=== PATIENT | female | born 1980 | race Hispanic/Latino ===

== ENCOUNTER 2019-08-21 10:55 | Outpatient (NON) | payer OTHER, SELFPAY ==
[2019-08-22 14:46] LABS: SARS-CoV-2 RNA PCR Negative
== END 2019-08-21 10:56 ==
PROVIDERS: PCP Family Medicine; Visit Provider Family Medicine
DX: R05 Cough (principal); Z20.828 Contact with and (suspected) exposure to other viral communicable diseases
CPT/HCPCS: 87635; C9803; U0003

== ENCOUNTER 2020-11-26 11:02 | Outpatient (CLI) | payer OTHER, SELFPAY ==
[2020-11-26 12:00] LABS: Basophils Percent Auto 0.2 % (0.2-1.2); Eosinophils Absolute Auto 0.1 K/mm3 (0-0.3); Eosinophils Percent Auto 1.3 % (0-4.4); Hematocrit 42.3 % (37.0-47.0); Immature Granulocyte Absolute 0.01 K/mm3 (0.00-0.031); Immature Granulocyte Percent A 0.2 % (0-0.5); Lymphocytes Absolute Auto 1.54 K/mm3 (0.9-3.2); Lymphocytes Percent Auto 33.2 % (18.3-44.2); Mean Corpuscular HGB Conc 33.1 g/dl (32-36); Mean Corpuscular Hemoglobin 30.1 pg (26-34); Mean Platelet Volume 10.8 fl (7.4-10.4); Monocytes Absolute Auto 0.4 K/mm3 (0.1-0.6); Monocytes Percent Auto 9.1 % (2.6-8.5); Neutrophils Absolute Auto 2.6 K/mm3 (1.3-6.7); Platelet Count Result 168 k/mm3 (150-375); Red Blood Count 4.65 M/mm3 (4.2-5.4); Red Cell Distribution Width 12.4 % (11.5-14.5); White Blood Count 4.6 K/mm3 (4.5-10.0)
== END 2020-11-26 11:03 | disposition home or self-care (01) ==
PROVIDERS: PCP Family Medicine; Visit Provider Obstetrics & Gynecology
DX: N85.2 Hypertrophy of uterus (principal)
CPT/HCPCS: 36415; 85025; 86850; 86900; 86901

== ENCOUNTER 2020-11-29 05:23 | Day surgery (SDC) | payer OTHER, SELFPAY ==
[2020-11-25 15:53] VITALS: BMI 21.2
--- NOTE | 2020-11-27 07:48 | PM.IMHP ---
H&P: HPI History of Present Illness Date/Time: 11/27/20 07:48 This is a 40 year female with a history fibroids excessive she has an ultrasound enlarged uterus with a 7+ cm. Risks and benefits of this procedure were reviewed including but not exclusive of , aspiration transfusion perforation to bowel bladder ureters, or other organs with need for laparotomy. She had all questions answered received the [employer] handout entitled hysterectomy. She understands this will make her permanently infertile and asked to proceed Chief Complaint: Symptomatic uterine fibroids Review of Systems Review of Systems: All systems reviewed & are unremarkable except as noted in HPI and below PMFSH Family History Family History Father Family history of diabetes mellitus in first degree relative Diabetes mellitus Hypertension Mother Family history of diabetes mellitus in first degree relative Family history of mental disorder Diabetes mellitus Depression Social History Social History Smoking status: Never smoker Alcohol intake: current Spiritual care concerns: No Meds Home Medications and Allergies Home Medications Medication Instructions Recorded Confirmed Type cetirizine 10 mg tablet 10 mg PO DAILY 06/28/19 11/25/20 History Allergies Allergy/AdvReac Type Severity Reaction Status Date / Time escitalopram Allergy Unknown Night Verified 11/25/20 15:53 sweats Exam Const: General: no acute distress Eyes: General: appearance normal, both eyes and all related structures Neck: Neck: supple and no JVD Thyroid: thyroid normal Resp: Effort & Inspection: normal respiratory effort Auscultation: clear to auscultation bilaterally Cardio: Rate: regular rate Rhythm: regular rhythm GI: Inspection: non-distended GI Palp: Yes Soft to palpation, No Tenderness to palpation present (GI) and No Guarding due to palpation present (GI) Auscultation: normal bowel sounds : General: Yes bladder normal to palpation External Female Exam: normal external appearance Speculum Exam - Vagina: normal appearance of the vagina Speculum Exam - Cervix: Cervical os closed Bimanual exam- vagina & uterus: enlarged Bimanual Exam- Adnexa, other: normal adnexae Skin: General skin exam: no rashes or lesions noted Extrem: General: normal to inspection and no edema Psych: Mental Status: mental status grossly normal Affect: normal affect Assessment and Plan Additional Plan Impression: Enlarged uterus with uterine fibroids/pelvic pain and heavy bleeding/dysmenorrhea Plan: Robotic total vaginal hysterectomy and bilateral salpingectomies with retention of the ovaries
[2020-11-29] VITALS (13 sets, daily range): BP systolic 99–118; BP diastolic 55–80; PULSE 62–85; RESP 12–20; TEMP 36.1–37; O2SAT 98–100
--- NOTE | 2020-11-29 06:35 | P.PNAN_ITS ---
Anes - Initial Pre Proc Eval Procedure: Operation Date: 11/29/20 07:30 Proposed Procedures p Robotic Assisted Total Vaginal Hysterectomy with Bilateral Salpingectomy - Ck Link MD Date/Time: 11/29/20 06:35 Surgeon: Ck Link MD Pre Op Diagnosis: enlarged uterus,fibroids, pain, dysmenorrhea Patient Data Age: 40 Gender: F Height: 1.57 m Weight: 52.8 kg Allergies Allergy/AdvReac Type Severity Reaction Status Date / Time escitalopram Allergy Unknown Night Verified 11/25/20 15:53 sweats Home Medications Medication Instructions Recorded Confirmed Type cetirizine 10 mg tablet 10 mg PO DAILY 06/28/19 11/25/20 History Patient hx anesthesia problems: none Family hx anesthesia problems: none [facility] Surgical History Surgical History (Updated 11/29/20 @ 06:36 by Ck Tobin MD) H/O breast augmentation Family History Family History Father Family history of diabetes mellitus in first degree relative Diabetes mellitus Hypertension Mother Family history of diabetes mellitus in first degree relative Family history of mental disorder Diabetes mellitus Depression Social History Social History Smoking status: Never smoker Alcohol intake: current Living arrangements: with family Spiritual care concerns: No Anes - Eval Final PreProcedure Day of Procedure 11/29/20 06:35 Patient weight: normal Heart: regular rate and rhythm Lungs: clear to auscultation Airway: Mallampati scale Neurological: alert and oriented Last oral intake: >/= 8 hours ASA classification: I Emergent: no Anesthetic plan: proceed Anesthesia type and monitoring: general ETT and standard monitoring Informed Consent: The patient's anesthetic plan and its attendant risks and benefits were discussed with the patient/family/POA. Questions were solicited and answers provided to the satisfaction of the patient/family/POA.
[2020-11-29] MEDS: ACETAMINOPHEN 500 MG TABLET 1000 MG PO (06:45)
[2020-11-29] MEDS: SCOPOLAMINE 1.5 MG PATCH TRANSDERM (06:46)
[2020-11-29] MEDS: LACTATED RINGERS 1,000 ML 30 ML IV CONT ×3 (06:50→09:28)
[2020-11-29] MEDS: KETOROLAC 15 MG/ML VIAL (*BKC) IV PUSH (06:52)
--- NOTE | 2020-11-29 07:14 | WPDHPUPDATE1 ---
History and Physical Update Update Date/Time: 11/29/20 07:14 History and Physical has been reviewed, including an updated exam of the patient. There are NO changes in the patient's condition. Risks, benefits, and alternatives have been discussed and questions answered. Patient agrees to proceed with procedure.
[2020-11-29] MEDS: ceFAZolin 2 GM/D5W 50 ML 2 GM/50 ML BAG IVPB (07:20)
--- NOTE | 2020-11-29 08:36 | W.PM.PROC2 ---
Procedure Note - Detailed Date of Procedure 11/29/20 Pre-op Diagnosis enlarged uterus,fibroids, pain, dysmenorrhea Post-op Diagnosis same Procedure Performed Robotic total vaginal hysterectomy and bilateral salpingectomy Surgeon Ck Link MD Anesthesia general Indications This is a 40-year-old female with a markedly enlarged uterus and pelvic Findings Markedly enlarged fibroid uterus. Normal-appearing ovaries and tubes bilaterally. Description of Procedure Patient was prepped draped in normal sterile fashion placed in the dorsal lithotomy position. Under excellent general endotracheal anesthesia weighted speculum placed in posterior fornix vagina. Anterior lip of the cervix was grasped with a single-tooth tenaculum and the uterus sounded to 11cm. Serial dilatation with fragmented dilators performed followed by passage of the 10. FRIEDA and the 3. Cold. A 16 [place] catheter was placed in the bladder and the remainder the instruments removed. The gloves were changed. Supraumbilical incision made the Veress needle passed in the. Abdomen was filled with CO2 gas [id number]. The 8mm trocar advanced in the abdomen the downside visualized with no injury seen. Gas reattached and the patient placed in Trendelenburg. 8mm trocars were advanced in the right left lower quadrants under direct visualization assuring no injury. Right upper quadrant incision made the 8mm trocar advanced under direct visualization again assuring injury. The robot was docked. Attention was turned to the console. The left round ligament was grasped, burned, cut. Anteriorly a bladder flap was formed by sharply dissecting the peritoneum and dissecting the bladder pushing it caudally away from the cervix and uterus to the opposite round ligament which was clamped, burned, cut. Next the left fallopian tube was sharply dissected using monopolar cautery to the base of the uterus to remove. This was were repeated on the contralateral side. Conserving the left ovary the utero-ovarian ligament on the left was clamped, burned, cut and brought to the level of previously cut round ligament. Conserving the right ovary the utero-ovarian ligament on the right was clamped, burned, cut and brought to the level of previously cut round ligament. The uterus was round and bulbous. The cardinal broad ligaments were then serially skeletonized clamped burned and cut down the lateral edge of the uterus and cervix until the uterine vessels on the left could be seen. These were individually clamped, burned, cut. There were noted to be markedly large and tortuous. In like fashion the cardinal and broad ligaments on the right were serially skeletonized clamped, burned, cut and brought down the lateral edge of the uterus until the vessels on the right could be seen. These were then individually clamped, burned, cut. Excellent blanching of the uterus was seen and the uterus was noted be large and bulky. A colpotomy incision was made cervix uterus and and tubes removed through the vagina draining the blood out of the uterine specimen to allow it to fit through the vaginal opening. The vaginal cuff was closed with continuous running 0V lock from lateral edge to lateral edge back to the midline. Irrigation undertaken to clear and the pedicles sprinkled with Garfield term. Hemostasis was assured and blood loss estimated at [id number]. The robot was undocked the gas removed from the abdomen. And the incisions closed with 4-0 Monocryl and glue. The patient was awakened and went to recovery in satisfactory condition. All sponge, needle, instrument counts were correct. There were immediate complications noted Estimated Blood Loss 25 Drains No Packing No Pathology yes Complications No immediate complications Condition stable Disposition PACU
[2020-11-29] MEDS: fentaNYL CITRATE INJ (*CRX) 100 MCG/2 ML VIAL 25 MCG IV PUSH ×8 (08:49→09:47)
[2020-11-29] MEDS: diphenhydrAMINE HCl INJ 50 MG/ML VIAL 25 MG IV PUSH (09:05)
[2020-11-29] MEDS: KETOROLAC 30 MG/ML VIAL (*BKC) IV PUSH (10:35)
[2020-11-29] MEDS: DEXTROSE 5%/0.45% SOD CHL 1,000 ML 125 ML (12:53)
[2020-11-29] MEDS: HYDROcodone/acetaminophen (*CRX) 10-325 MG TABLET 1 TAB PO ×2 (14:24→19:55)
[2020-11-29] MEDS: IBUPROFEN 600 MG TABLET PO (17:05)
[2020-11-29] MEDS: DOCUSATE SODIUM 100 MG CAPSULE PO (17:05)
[2020-11-29] MEDS: HYDROcodone/acetaminophen (*CRX) 5-325 MG TABLET 1 TAB PO (17:05)
[2020-11-29] MEDS: SIMETHICONE 80 MG TAB.CHEW PO (19:56)
[2020-11-30] MEDS: SIMETHICONE 80 MG TAB.CHEW PO ×2 (00:04→03:55)
[2020-11-30] MEDS: HYDROcodone/acetaminophen (*CRX) 10-325 MG TABLET 1 TAB PO (00:05)
[2020-11-30 00:10] VITALS: BP 102/63; PULSE 60; RESP 15; TEMP 36.8; O2SAT 98
[2020-11-30] MEDS: IBUPROFEN 600 MG TABLET PO (03:56)
[2020-11-30] MEDS: HYDROcodone/acetaminophen (*CRX) 5-325 MG TABLET 1 TAB PO ×2 (03:56→09:12)
[2020-11-30 04:00] VITALS: BP 104/62; PULSE 67; RESP 16; TEMP 36.3; O2SAT 100
[2020-11-30 05:35] LABS: Basophils Percent Auto 0.2 % (0.2-1.2); Eosinophils Absolute Auto 0.1 K/mm3 (0-0.3); Eosinophils Percent Auto 0.5 % (0-4.4); Hematocrit 38.2 % (37.0-47.0); Hemoglobin 12.7 g/dL (12.0-15.0); Immature Granulocyte Absolute 0.03 K/mm3 (0.00-0.031); Immature Granulocyte Percent A 0.3 % (0-0.5); Lymphocytes Absolute Auto 1.88 K/mm3 (0.9-3.2); Lymphocytes Percent Auto 20.3 % (18.3-44.2); Mean Corpuscular HGB Conc 33.2 g/dl (32-36); Mean Corpuscular Hemoglobin 31.1 pg (26-34); Mean Corpuscular Volume 93.4 fl (80-100); Mean Platelet Volume 11.2 fl (7.4-10.4); Monocytes Absolute Auto 0.6 K/mm3 (0.1-0.6); Monocytes Percent Auto 6.5 % (2.6-8.5); Neutrophils Absolute Auto 6.7 K/mm3 (1.3-6.7); Neutrophils Percent Auto 72.2 % (45.5-73.1); Platelet Count Result 150 k/mm3 (150-375); Red Blood Count 4.09 M/mm3 (4.2-5.4); Red Cell Distribution Width 12.3 % (11.5-14.5); White Blood Count 9.3 K/mm3 (4.5-10.0)
--- NOTE | 2020-11-30 07:59 | PM.GYNPNOP ---
PHLEBOTOMY SERVICES REPRESENTATIVE - A/P Postoperative Procedures: Procedures Operation Date: 11/29/20 07:30 Actual Procedure Side Surgeon p Robotic Assisted Total Vaginal Hysterectomy with Bilateral Salpingectomy Ck Link MD Postoperative day: 1 Postoperative status: doing well Postoperative plan: routine post-op care Time Spent With Patient Time: Total time spent is greater than 50% in coordination of care (as documented) at patient's floor/unit and/or counseling patient: Time with patient: less than 15 minutes PHLEBOTOMY SERVICES REPRESENTATIVE- PN:Subj Post-Op Subjective Date/time seen: 11/30/20 07:59 Subjective: patient reports feeling better, patient has no complaints, pain is well controlled and patient is tolerating oral intake Review of Systems Review of Systems: All systems reviewed & are unremarkable except as noted in HPI and below Exam Const: General: no acute distress Eyes: General: appearance normal, both eyes and all related structures Neck: Neck: supple and no JVD Thyroid: thyroid normal Resp: Effort & Inspection: normal respiratory effort Auscultation: clear to auscultation bilaterally Cardio: Rate: regular rate Rhythm: regular rhythm GI: Inspection: normal to inspection and incision (cdi) Percussion: Yes normal to percussion Auscultation: normal bowel sounds : General: Yes bladder normal to palpation External Female Exam: normal external appearance Speculum Exam - Vagina: normal vaginal discharge and No vaginal bleeding Speculum Exam - Cervix: nontender Bimanual exam- vagina & uterus: bladder normal to palpation and No Cervical tenderness present OB/external & speculum: No vaginal bleeding Skin: General skin exam: no rashes or lesions noted Extrem: General: normal to inspection and no edema Psych: Mental Status: mental status grossly normal Affect: normal affect PHLEBOTOMY SERVICES REPRESENTATIVE - PN: Obj Data Vital Signs Vital Signs: Vital Signs - 24 hr 11/29/20 08:40 11/29/20 08:55 11/29/20 09:10 Temperature 96.9 F L Pulse Rate 85 65 71 Respiratory Rate 18 14 14 Blood Pressure 115/71 118/73 112/71 Pulse Oximetry 100 100 100 11/29/20 09:25 11/29/20 09:40 11/29/20 09:55 Temperature 98.6 F Pulse Rate 71 64 65 Respiratory Rate 16 12 12 Blood Pressure 110/71 105/69 104/70 Pulse Oximetry 100 100 100 11/29/20 10:10 11/29/20 10:15 11/29/20 10:20 Temperature 97.3 F L Pulse Rate 76 72 72 Respiratory Rate 14 16 16 Blood Pressure 99/65 L 112/70 Pulse Oximetry 100 99 99 11/29/20 12:24 11/29/20 17:24 11/29/20 20:00 Temperature 98.3 F 98.2 F 98.2 F Pulse Rate 71 71 62 Respiratory Rate 16 16 16 Blood Pressure 100/55 L 100/62 104/60 Pulse Oximetry 98 98 100 11/30/20 00:10 11/30/20 04:00 Temperature 98.2 F 97.4 F L Pulse Rate 60 67 Respiratory Rate 15 16 Blood Pressure 102/63 104/62 Pulse Oximetry 98 100 Intake/Output Intake/Output: Intake & Output 11/27/20 11/28/20 11/29/20 11/30/20 23:59 23:59 23:59 23:59 Intake Total 2450 200 Output Total 2075 650 Balance 375 -450 Meds/Results Medications: Active Medications Generic Name Dose Route Start Last Admin Trade Name Freq PRN Reason Stop Dose Admin Hydrocodone Bitart/Acetaminophen 1 tab 11/29/20 10:11 11/30/20 03:56 Hydrocodone/Acetaminophen (*Crx) 5-325 Mg Tablet PO 1 tab Q3H PRN Administration Pain Rated 5 or Less Hydrocodone Bitart/Acetaminophen 1 tab 11/29/20 10:11 11/30/20 00:05 Hydrocodone/Acetaminophen (*Crx) 10-325 Mg Tablet PO 1 tab Q3H PRN Administration Pain Rated 6 or Greater Docusate Sodium 100 mg 11/29/20 10:11 11/29/20 17:05 Docusate Sodium 100 Mg Capsule PO 100 mg BID LEIGH Administration Enoxaparin Sodium 40 mg 11/29/20 10:11 Enoxaparin 40 Mg/0.4 Ml Syringe SUB-Q DAILY LEIGH Ibuprofen 600 mg 11/29/20 10:11 11/30/20 03:56 Ibuprofen 600 Mg Tablet PO 600 mg Q6H PRN Administration Cramping Ketorolac Tromethamine 30 mg 11/29/20 10:11 11/29/20 10:35 Ketorolac 30 Mg
--- NOTE | 2020-11-30 08:01 | P.DS_ITS ---
DS: Admitting Diagnosis Admitting Diagnosis Large uterus and pelvic pain DS: Summary Hospital Course Hospital Course: Preop removed removed for robotic hysterectomy and bilateral salpingectomy. Her hospital course was unremarkable. She remained afebrile. She was up, voiding without difficulty, ambulating and checked with the complaint Time Spent with Patient Time attestation: Total time spent providing and/or coordinating discharge services: Exam Const: General: no acute distress Eyes: General: appearance normal, both eyes and all related structures Neck: Neck: supple and no JVD Thyroid: thyroid normal Resp: Effort & Inspection: normal respiratory effort Auscultation: clear to auscultation bilaterally Cardio: Rate: regular rate Rhythm: regular rhythm GI: Inspection: non-distended GI Palp: Yes Soft to palpation, No Tenderness to palpation present (GI) and No Guarding due to palpation present (GI) Auscultation: normal bowel sounds : General: Yes bladder normal to palpation External Female Exam: normal external appearance Speculum Exam - Vagina: normal vaginal discharge and No vaginal bleeding Speculum Exam - Cervix: nontender Bimanual exam- vagina & uterus: bladder normal to palpation and No Cervical tenderness present OB/external & speculum: No vaginal bleeding Skin: General skin exam: no rashes or lesions noted Extrem: General: normal to inspection and no edema Psych: Mental Status: mental status grossly normal Affect: normal affect DS: Data Data Completed and Pending Pending studies at discharge: Pending at discharge 11/29/20 07:51 Surgical [PTH] Routine Labs on day of discharge: Labs from last 24 hours 11/30/20 04:05 WBC 9.3 RBC 4.09 L Hgb 12.7 Hct 38.2 MCV 93.4 MCH 31.1 MCHC 33.2 RDW 12.3 Plt Count 150 MPV 11.2 H Immature Gran % (Auto) 0.3 Neut % (Auto) 72.2 Lymph % (Auto) 20.3 [place] % (Auto) 6.5 Eos % (Auto) 0.5 Baso % (Auto) 0.2 Lymph # (Auto) 1.88 [place] # (Auto) 0.6 Eos # (Auto) 0.1 Baso # (Auto) 0.0 Abs Immat Gran (auto) 0.03 Absolute Neuts (auto) 6.7 Absolute Nucleated RBC 0.0 Nucleated RBC % 0.0 Discharge Plan Discharge Patient Disposition: Home, Self-Care Discharge Instructions: Remove the Scopolamine patch that was placed behind your ear in 72 hours or less. Wash your hands after touching. Stand Alone Forms: General Discharge Instructions Follow-up/Referrals: Ck Link MD [Physician] - Discharge Medications: New hydrocodone-acetaminophen 5-325 mg tablet 1 tablet PO Q4H PRN (Reason: pain) Qty: 30 RF: 0 No Action cetirizine [Zyrtec] 10 mg tablet 10 mg PO DAILY RF: 0
[2020-11-30 09:13] VITALS: BP 119/71; PULSE 69; RESP 12; TEMP 37.3; O2SAT 100
[2020-11-30] MEDS: ENOXAPARIN 40 MG/0.4 ML SYRINGE SUB-Q (09:13)
[2020-11-30] MEDS: DOCUSATE SODIUM 100 MG CAPSULE PO (09:13)
--- NOTE | 2020-11-30 09:47 | WPDANLDPN2 ---
Anes-Prog Note L&D Date/Time: 11/30/20 09:47 Comfortable throughout: labor and delivery Neuraxial method: epidural Epidural/Spinal procedure site: clean & non-tender Neuro status: Neuro function grossly intact. Cardiovascular status: normal Respiratory status: normal Airway patency: baseline Mental status: baseline Post-Op hydration status: normal Vital Signs: Last Vital Signs Temp 37.3 C 11/30/20 09:13 Pulse 69 11/30/20 09:13 Resp 12 11/30/20 09:13 BP 119/71 11/30/20 09:13 Pulse Ox 100 11/30/20 09:13 Pain score (VAS): 04/21 I/O: Intake & Output 11/29/20 11/30/20 11/30/20 23:59 07:59 15:59 Intake Total 1800 200 Output Total 1225 650 100 Balance 575 -450 -100 Post-procedural complaints: none Patient feedback: Patient satisfied with anesthetic care.
[2020-11-30] MEDS: FLUCONAZOLE 150 MG TABLET PO (10:14)
--- NOTE | 2020-11-30 16:37 | WPDANESPN ---
Anes - Prog Note Post-Op Date/Time: 11/30/20 16:37 Cardiovascular status: normal Respiratory status: normal Airway patency: baseline Mental status: baseline Post-Op hydration status: normal Vital Signs: Last Vital Signs Temp 37.3 C 11/30/20 09:13 Pulse 69 11/30/20 09:13 Resp 12 11/30/20 09:13 BP 119/71 11/30/20 09:13 Pulse Ox 100 11/30/20 09:13 Pain Score (VAS): 04/21 I/O: Intake & Output 11/30/20 11/30/20 11/30/20 07:59 15:59 23:59 Intake Total 200 Output Total 650 450 Balance -450 -450 Laboratory Tests 11/30/20 04:05 11/30/20 04:05 WBC 9.3 RBC 4.09 L Hgb 12.7 Hct 38.2 MCV 93.4 MCH 31.1 MCHC 33.2 RDW 12.3 Plt Count 150 MPV 11.2 H Immature Gran % (Auto) 0.3 Neut % (Auto) 72.2 Lymph % (Auto) 20.3 [place] % (Auto) 6.5 Eos % (Auto) 0.5 Baso % (Auto) 0.2 Lymph # (Auto) 1.88 [place] # (Auto) 0.6 Eos # (Auto) 0.1 Baso # (Auto) 0.0 Abs Immat Gran (auto) 0.03 Absolute Neuts (auto) 6.7 Absolute Nucleated RBC 0.0 Nucleated RBC % 0.0 Post-procedural complaints: none Patient Feedback: Patient satisfied with anesthetic care.
== END 2020-11-30 11:40 | disposition home or self-care (01) ==
LOC: ANHSURGERY 07:53 → ANHOB2 10:23
PROVIDERS: PCP Family Medicine; Visit Provider Obstetrics & Gynecology
PROC: (CPT 58552; principal; 2020-11-29 07:30)
DX: N85.2 Hypertrophy of uterus (principal); D25.1 Intramural leiomyoma of uterus; D25.0 Submucous leiomyoma of uterus; D25.2 Subserosal leiomyoma of uterus; R10.2 Pelvic and perineal pain; N94.6 Dysmenorrhea, unspecified
CPT/HCPCS: 58552; S2900; 36415; 85025; 88307; 99199; A9270; J0690; J1100; J1200; J1650; J1885; J2250; J2405; J2704; J2710; J3010; J7030; J7120

== ENCOUNTER → 2021-12-09 15:33 | Outpatient (CLI) | payer OTHER, SELFPAY ==
--- NOTE | ~2021-12-09 | MM_ITS ---
EXAMINATION: MM screening [place] [facility] w [facility]idi HISTORY: Screening mammogram TECHNIQUE: Craniocaudal and mediolateral oblique 3-D tomosynthesis images were obtained and synthetic 2-D images were generated. CAD analysis was submitted and interpreted. COMPARISON: None, baseline BREAST PARENCHYMAL COMPOSITION: The breasts are heterogeneously dense, which may obscure small masses . FINDINGS: There is no suspicious mass, calcification, or architectural distortion to suggest malignan cy in either breast. IMPRESSION: 1. No mammographic evidence of malignancy. 2. Recommend routine screening mammography in one year. BI-RADS Category 1: Negative Reviewed, dictated and finalized at location A.
== END ==
PROVIDERS: PCP Family Medicine; Visit Provider Obstetrics & Gynecology
DX: Z12.31 Encounter for screening mammogram for malignant neoplasm of breast (principal)
CPT/HCPCS: 77063; 77067

== ENCOUNTER 2022-10-28 11:13 | Outpatient (CLI) | payer BC, SELFPAY | END 2022-10-28 11:14 | disposition home or self-care (01) | LOC: ANHLAB 11:15 | PROVIDERS: PCP Family Medicine; Visit Provider Nurse Practitioner Family | DX: R53.82 Chronic fatigue, unspecified (principal); R53.81 Other malaise | CPT/HCPCS: 36415; 86038; 86039 ==

== ENCOUNTER 2022-12-20 08:14 | Outpatient (CLI) | payer BC, SELFPAY ==
--- NOTE | ~2022-12-20 | XR_ITS ---
Right foot Technique: AP and lateral views were obtained. Clinical History: Polyarthralgia Findings: No acute fracture or dislocation is seen. Osseous alignment is anatomic. Joint spaces are p reserved without erosive or degenerative change. Soft tissues are unremarkable. Impression: Unremarkable right foot radiographs. Reviewed, dictated and finalized at location . Impression: Unremarkable right foot radiographs.
--- NOTE | ~2022-12-20 | XR_ITS ---
Right Hand Technique: PA and lateral views were obtained. Clinical History: Polyarthralgia Findings: No acute fracture or dislocation is seen. Osseous alignment is anatomic. Joint spaces are p reserved. Soft tissues are unremarkable. Impression: Unremarkable right hand. Reviewed, dictated and finalized at location M. Impression: Unremarkable right hand.
--- NOTE | ~2022-12-20 | XR_ITS ---
Left Hand Technique: PA and lateral views were obtained. Clinical History: Polyarthralgia Findings: No acute fracture or dislocation is seen. Osseous alignment is anatomic. Joint spaces are p reserved. Soft tissues are unremarkable. Impression: Unremarkable left hand. Reviewed, dictated and finalized at location M. Impression: Unremarkable left hand.
--- NOTE | ~2022-12-20 | XR_ITS ---
Left foot Technique: AP and lateral views were obtained. Clinical History: Polyarthralgia Findings: No acute fracture or dislocation is seen. Osseous alignment is anatomic. Joint spaces are p reserved without erosive or degenerative change. Soft tissues are unremarkable. Impression: Unremarkable left foot radiographs. Reviewed, dictated and finalized at location . Impression: Unremarkable left foot radiographs.
== END 2022-12-20 08:15 | disposition home or self-care (01) ==
LOC: ANHIMG 08:17
PROVIDERS: PCP Family Medicine; Visit Provider Internal Medicine Rheumatology
DX: R76.8 Other specified abnormal immunological findings in serum (principal); M25.50 Pain in unspecified joint; R53.83 Other fatigue; M79.10 Myalgia, unspecified site
CPT/HCPCS: 73120; 73620

== ENCOUNTER → 2023-03-24 15:34 | Outpatient (CLI) | payer BC, SELFPAY ==
--- NOTE | ~2023-03-24 | MM_ITS ---
EXAMINATION: MM screening [place] [facility] w [facility]idi HISTORY: Screening TECHNIQUE: Craniocaudal and mediolateral oblique 3-D tomosynthesis images were obtained and synthetic 2-D images were generated. CAD analysis was submitted and interpreted. COMPARISON: 12/09/2021 BREAST PARENCHYMAL COMPOSITION: The breasts are heterogeneously dense, which may obscure small masses FINDINGS: There is no evidence of suspicious mass, calcification, or architectural distortion to sugg est malignancy in either breast. There has been no suspicious interval change. IMPRESSION: 1. No mammographic evidence of malignancy. 2. Recommend routine screening mammography in one year. BI-RADS Category 1: Negative Reviewed, dictated and finalized at location A. CONTROL OFFICER
== END ==
PROVIDERS: PCP Obstetrics & Gynecology; Visit Provider Obstetrics & Gynecology
DX: Z12.31 Encounter for screening mammogram for malignant neoplasm of breast (principal)
CPT/HCPCS: 77063; 77067

== ENCOUNTER 2024-05-19 15:41 | Outpatient (CLI) | payer BC, SELFPAY ==
--- NOTE | ~2024-05-19 | MM_ITS ---
EXAMINATION: MM screening [place] [facility] w [facility]idi HISTORY: Screening TECHNIQUE: Craniocaudal and mediolateral oblique 3-D tomosynthesis images were obtained and synthetic 2-D images were generated. CAD analysis was submitted and interpreted. COMPARISON: Comparison to multiple prior studies sequentially, with oldest reviewed study dated 12/09. BREAST PARENCHYMAL COMPOSITION: Dense: The breasts are heterogeneously dense, which may obscure small masses FINDINGS: There is a new low-density mass in the lower central aspect of the right breast, anterior-m iddle depth. The left breast is stable without evidence for malignancy. IMPRESSION: 1. New low-density mass of the right breast. 2. Additional mammographic views and possible breast ultrasound are recommended. BI-RADS Category 0: Incomplete: Needs additional imaging evaluation. Reviewed, dictated and finalized at location B. LIGHT INSPECTOR IMPRESSION: 1. New low-density mass of the right breast. 2. Additional mammographic views and possible breast ultrasound are recommended . BI-RADS Category 0: Incomplete: Needs additional imaging evaluation.
== END 2024-05-19 15:42 | disposition home or self-care (01) ==
LOC: MICIMG 15:43
PROVIDERS: PCP Family Medicine; Visit Provider Obstetrics & Gynecology
DX: Z12.31 Encounter for screening mammogram for malignant neoplasm of breast (principal); R92.8 Other abnormal and inconclusive findings on diagnostic imaging of breast
CPT/HCPCS: 77063; 77067

== ENCOUNTER 2024-05-26 09:33 | Outpatient (CLI) | payer BC, SELFPAY ==
--- NOTE | ~2024-05-26 | MMUS_ITS ---
EXAMINATION: US breast RT limited, MM diagnostic [place] [facility] w heidi HISTORY: New right breast mass on screening mammogram TECHNIQUE: Additional 3-D tomosynthesis images of the right breast were performed and synthetic 2-D i mages were generated. CAD analysis was submitted and interpreted. High resolution Limited right breas t ultrasound was performed. COMPARISON: Comparison to multiple prior studies sequentially, with oldest reviewed study dated 12/09. BREAST PARENCHYMAL COMPOSITION: Dense: The breasts are heterogeneously dense, which may obscure small masses FINDINGS: MAMMOGRAPHIC FINDINGS: There is a low-density mass in the lower central aspect of the left breast, middle third. No suspicio us calcifications or architectural distortion. ULTRASOUND: Limited right breast ultrasound: There are multiple cysts of the right breast in the area of mammogra phic concern. The largest measures 9 mm at 7:00, 2 cm from the nipple and 1.5 cm at 6:00 in the subar eolar location. IMPRESSION: 1. No evidence for malignancy in the right breast. Benign findings. 2. Routine yearly screening mammogram and regular clinical breast examination are recommended. BI-RADS Category 2: Benign finding(s). Reviewed, dictated and finalized at location B. TS MEDICINE MASSEUR IMPRESSION: 1. No evidence for malignancy in the right breast. Benign findings. 2. Routine yearly screening mammogram and regular clinical breast examination a re recommended. BI-RADS Category 2: Benign finding(s).
== END 2024-05-26 09:34 | disposition home or self-care (01) ==
LOC: MICIMG 09:33
PROVIDERS: PCP Family Medicine; Visit Provider Obstetrics & Gynecology
DX: R92.8 Other abnormal and inconclusive findings on diagnostic imaging of breast (principal)
CPT/HCPCS: 76642; 77061; 77065; G0279

== ENCOUNTER 2024-07-17 14:09 | Outpatient (CLI) | payer BC, SELFPAY ==
--- NOTE | ~2024-07-17 | DEXA_ITS ---
Bone Density Report Name: HECTOR NGUYEN Age: 43 Sex: Female Ethnicity: White Date of : 1980 Indication: postmenopausal; hysterectomy; Referring Provider: REDFRITZ Study: Bone densitometry was performed. Exam Date: July 17, 2024 Accession number: [id number] Bone Density: Region BMD T-score Z-score Classification AP Spine(L1-L4) 0.972 -0.7 -0.3 Normal Femoral Neck (Left) 0.816 -0.3 0.1 Normal Total Hip (Left) 1.010 0.6 0.8 Normal Femoral Neck (Right) 0.839 -0.1 0.3 Normal Total Hip (Right) 1.010 0.6 0.8 Normal Total Hip Mean 1.010 0.6 0.8 Normal World Health Organization criteria for BMD impression classify patients as: Normal (T-score at or above -1.0), Osteopenia (T-score between -1.0 and -2.5), or Osteoporosis (T-score at or below -2.5). 10-year Fracture Risk: FRAX not reported because: All T-scores for Spine Total, Hip Total, Femoral Neck at or above -1.0 Clinical Information Provided by Patient: Has used the following medications: HRT (i.e. estrogen/hormone therapy), Vitamin D Has the following medical conditions: Hysterectomy Patient maximum height was 62.25 Menopause Age: 40 Drinks caffeinated beverages Onset of menses at age 12 Number of children 1 Impression: The patient has normal bone mass. Discussion: BONE DENSITY IS ABOVE THE MINIMUM DESIRABLE LEVEL AT ALL SKELETAL SITES TESTED. This patient?s bone mineral density is above the minimum desirable level (T-score -1.0 or better) at all sites measured. The patient should follow a healthful lifestyle (good nutrition with adequate calcium and vitamin D, and appropriate weight-bearing exercise). Follow-Up: Consider repeating this study in 5 years or sooner if there is some new clinical indication. Reported by: JOSH on 07/17/2024 3:42:00 PM. Reviewed, dictated and finalized at location [facility]
--- OUTSIDE RECORDS SUMMARY | 2024-07-17 16:15 | XMS_ITS | Encounter Summary ---
Author Organization [facility] Address [address] [place] [address] Care Team Providers Care Director Agency & Strategic Partnerships Name Role Phone Jaelyn Shepherd MD Primary Care Provider Jodie Godfrey DO Unavailable [phone] Encounter Details Date Type Department Care Team (Late st Contact Info) Description 07/09/2024 Results Follow-Up [facility] [address] [place] [address] [place] [address] [place] [address] Social History Tobacco Use Types Packs/Day Years Used Date Smoking Tobacco: Never Passive Smoke Exposure: Never Smokeless Tobacco: Never Comments No Sex and Gender Information Value Date Recorded Sex Assigned at Not on file 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
--- OUTSIDE RECORDS SUMMARY | 2024-07-17 16:15 | XMS_ITS | Clinical Summary ---
Author Organization [facility] [address] [place] [facility] [place] [address] Care Team Providers Care Steward/Stewardess Economy Class Name Role Phone Jaelyn Shepherd MD Primary Care Provider Jodie Godfrey DO Unavailable [phone] Allergies Active Allergy Reactions Criticality Noted Date Comments Citalopram Unknown 06/18/2022 Medications cetirizine (ZyrTEC) 10 mg tablet Take 1 tablet (10 mg total) by mouth daily Active progesterone (Prometrium) 200 mg capsule Take 1 capsule (200 mg total) by mouth nightly Take one by mouth at bedtime 90 capsule 4 4 Active Tamara 0.075 mg/24 hr APPLY 1 TOPICALLY TO SKIN TWICE A WEEK 24 patch 5 Active tretinoin (RETIN-A) 0.1 % cream Apply topically nightly 45 g 2 5 07/07/19 26 Active estrogens, conjugated, (PREMARIN) vaginal creamIndication s:Menopausal symptoms Insert 0.5 g into the vagina 2 (two) times a week 30 g 1 5 Active estrogens, conjugated, (PREMARIN) vaginal cream Insert 0.5 g into the vagina 2 (two) times a week 30 g 1 4 07/11/19 25 Discontinu ed(Reorder ) Active Problems No known active problems Encounters Date Type Department Care Team Description 07/12/2024 Documentation [facility] [address] [place] [address] Inocencia Gramajo 07/10/2024 Orders Only [facility] [address] [place] [address] Jodie Godfrey DO Menopausal symptoms (Primary Dx) 07/09/2024 Results Follow-Up [facility] [place] [address] Jodie Godfrey DO 07/06/2024 9:45 AM CDT Office Visit [facility] [place] [address] Jodie Godfrey DO Routine gynecological examination (Primary Dx); Menopausal symptoms; Vitamin D deficiency; Muscle cramping 05/23/2024 Orders Only [facility] [place] [address] Jodie Godfrey DO Abnormal mammogram (Primary Dx) from Last 3 Months Surgical History Surgery Date Site/Laterality Comments ROBOTIC ASSISTED HYSTERECTOMY 11/30/2020 ovaries perserved. 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 Gender Identity Not on file Sexual Orientation Not on file Obstetrics History Para Term AB IAB SAB Ectopic Multiple Livin g Live Births 1 Date Outcome GA Total Labor Labor/2nd/3rd Weight Sex Type Anes PTL Vania A1 A5 Name Clin 2005 Term Vag-Spo nt Last Filed Vital Signs Vital Sign Reading Time Taken Comments Blood Pressure 132/77 07/06/2024 9:32 AM CDT Pulse - - Temperature - - Respiratory Rate - - Oxygen Saturation - - Inhaled Oxygen Concentration - - Weight 56.5 kg (124 lb 9.6 oz) 07/06/2024 9:32 A M CDT Height 157.5 cm (5' 2 ) 07/06/2024 9:32 AM CDT Body Mass Index 22.79 07/06/2024 9:32 AM CDT Plan of Treatment Health Maintenance Due Date Last Done Comments Breast Cancer Screening-Mammogram 1980 Depression Screening 1980 Hepatitis C Screening 1980 DTaP/Tdap/Td Vaccine (1 - Tdap) 11/11/1991 Varicella Vaccines (1 of 2 - 13+ 2-dose series) 1993 Hepatitis B Screening 1998 Covid-19 Vaccine ( season) 2023 01/24/2021, 05/07/2020, 04/16/2020 Influenza Vaccine (Season Ended) 2024 01/12/2018 Regular Well Visit/Exam 18-64 07/06/2025 07/06/2024, 06/29/2023 Cervical Cancer Screening Discontinued 2024, 06/29/2023 HPV Vaccines Aged Out No longer eligi ble based on patient's age to complete this topic Pneumococcal vaccine <65 Aged Out No longer eligible based on patient's age to complete this topic Procedures Procedure Name Priority Date/Time Associated Diagnosis Comments THINPREP IMAGING PAP AND HPV MRNA E6/E7 REFLEX HPV 16,18/45 Routine 07/06/2024 10:28 AM CDT Routine gynecological examination FERRITIN Routine 07/06/2024 10:14 AM CDT Muscle cramping CBC WITHOUT DIFFERENTIAL Routine 07/06/2024 10:14 AM CDT Muscle cramping ESTRADIOL Routine 07/06/2024 10:14 AM CDT Menopausal symptoms FOLLICLE STIMULATING HORMONE Routine 07/06/2024 10:14 AM CDT Menopausal symptoms VITAMIN D 25 HYDROXY Routine 07/06/2024 10:14 AM CDT Vitamin D deficiency from Last 3 Months Results * ThinPrep(R) Imaging Pap and HPV mRNA E6/E7 Reflex HPV 16,18/45 (07/06/2024 10:28 AM CDT) CLINICAL INFORMATION: [facility] Comment:None given LMP [facility] Comment:NONE GIVEN Previous Pap [facility] Comment:NONE GIVEN Prev. Bx [facility] Comment:NONE GIVEN SOURCE: [facility] Comment:None given Pap, specimen adequacy [facility] Comment: Satisfactory for evaluation. Endocervical/transformation zone component present. Age and/or menstrual status not provided HPV interp [facility] Comment: Cytology Results: Negative for intraepithelial lesion or malignancy. COMMENTS [facility] Comment: This Pap test has been evaluated with computer assisted technology. Sail Finisher Machine Que [facility] Comment: SANTIAGO, CT(ASCP) CT Screening location: [facility] [place] [address] Comment [facility] [employer] [facility] Comment: EXPLANATORY NOTE: The Pap is a screening test for cervical cancer. It is not a diagnostic test and is subject to false negative and false positive results. It is most reliable when a satisfactory sample, regularly obtained, is submitted with relevant clinical findings and history, and when the Pap result is evaluated along with historic and current clinical information. Human papillomavirus RNA, High Risk E6/E7 Not Detected Not Detected [facility] Comment: Methodology: Hand Binder Stripper-Mediated Amplification This assay detects E6/E7 viral messenger RNA (mRNA) from 14 high-risk HPV types (16,18,31,33,35,39,45,51,52,56,58,59,66,68). Cervical sources are required for HPV testing. If a vaginal source from a patient who has had a total hysterectomy with removal of cervix was submitted, please contact the testing laboratory for alternative testing options. For additional information, please refer to http://education.[employer].PlanZap/faq/EBM686x9 (This link if provided for information/ educational purposes only.) Swab 07/06/2024 10:2 8 AM CDT 07/07/2024 12:38 AM CDT us Jodie Godfrey DO LAB CYTOLOGY ORDERABLES Final Result [facility] [address] [place] [address] [facility] [address] [place] [address] * (ABNORMAL) Vitamin D 25 hydroxy (07/06/2024 10:14 AM CDT) Vitamin D 25-OH 24(L) 30 - 100 ng/mL [facility] [place]note 2] Comment: Vitamin D Status 25-OH Vitamin D: Deficiency: <20 ng/mL Insufficiency: 20 - 29 ng/mL Optimal: > or = 30 ng/mL For 25-OH Vitamin D testing on patients on D2-supplementation and patients for whom quantitation of D2 and D3 fractions is required, the QuestAssureD(TM) 25-OH VIT D, (D2,D3), LC/MS/MS is recommended: order code 07897 (patients >2yrs). See Note 1 Note 1 For additional information, please refer to http://education.[employer]/faq/DCC191 (This link is being provided for informational/ educational purposes only.) Blood 07/06/2024 10:1 4 AM CDT 07/06/2024 10:15 AM CDT us Jodie Godfrey DO LAB BLOOD ORDERABLES Fi nal Result [facility] [address] [place] [address] * Estradiol (07/06/2024 10:14 AM CDT) Pathologist [facility] Estradiol 230 pg/mL [facility] [place]note 2] Comment: Reference Range Follicular Phase: 19-144 Mid-Cycle: 64-357 Luteal Phase: 56-214 Postmenopausal: < or = 31 Reference range established on post-pubertal patient population. No pre-pubertal reference range established using this assay. For any patients for whom low Estradiol levels are anticipated (e.g. males, pre-pubertal children and hypogonadal/post-menopausal females), the [facility] Estradiol, Ultrasensitive, LCMSMS assay is recommended (order code 46913). Please note: patients being treated with the drug fulvestrant (Faslodex(R)) have demonstrated significant interference in immunoassay methods for estradiol measurement. The cross reactivity could lead to falsely elevated estradiol test results leading to an inappropriate clinical assessment of estrogen status. [facility] order code [id number], Ultrasensitive LC/MS/MS demonstrates negligible cross reactivity with fulvestrant. Blood 07/06/2024 10:1 4 AM CDT 07/06/2024 10:15 AM CDT us Jodie Godfrey DO LAB BLOOD ORDERABLES Fi nal Result Performing Organization Address City/[facility] Co de Phone Number [facility] [address] [place] [address] * CBC without differential (07/06/2024 10:14 AM CDT) WBC 4.6 3.8 - 10.8 Thousand/u L [facility] RBC, POC 4.87 3.80 - 5.10 Million/uL [facility] Hgb 14.9 11.7 - 15.5 g/dL [facility] Hct 44.9 35.0 - 45.0 % [facility] MCV 92.2 80.0 - 100.0 fL [facility] MCH 30.6 27.0 - 33.0 pg [facility] MCHC 33.2 32.0 - 36.0 g/dL [facility] Comment: For adults, a slight decrease in the calculated MCHC value (in the range of 30 to 32 g/dL) is most likely not clinically significant; however, it should be interpreted with caution in correlation with other red cell parameters and the patient's clinical condition. Rdw 12.8 11.0 - 15.0 % [facility] Platelets 223 140 - 400 Thousand/u L [facility] MPV 11.1 7.5 - 12.5 fL [facility] Blood 07/06/2024 10:1 4 AM CDT 07/06/2024 10:15 AM CDT us Jodie Godfrey DO LAB BLOOD ORDERABLES Fi nal Result Performing Organization Address City/[facility]/ZIP Co de Phone Number [facility] [address] [place] [address] * Follicle stimulating hormone (07/06/2024 10:14 AM CDT) FSH 3.5 mIU/mL [facility] Comment: Reference Range Follicular Phase 2.5-10.2 Mid-cycle Peak 3.1-17.7 Luteal Phase 1.5- 9.1 Postmenopausal 23.0-116.3 Blood 07/06/2024 10:1 4 AM CDT 07/06/2024 10:15 AM CDT us Jodie Godfrey DO LAB BLOOD ORDERABLES Fi nal Result Performing Organization Address [facility] Co de Phone Number [facility] [address] [place] [address] * Ferritin (07/06/2024 10:14 AM CDT) Pathologist [facility] Ferritin 115 16 - 232 ng/mL [facility] Blood 07/06/2024 10:1 4 AM CDT 07/06/2024 10:15 AM CDT us Jodie Godfrey DO LAB BLOOD ORDERABLES Fi nal Result Performing Organization Address [facility] Co de Phone Number [facility] [address] [place] [address] from Last 3 Months Insurance [facility] ACC[facility] Member Subscriber Plan / Payer (Ef fective 2023-Present) Name:Samantha Bender Relation to Subscriber:Spouse Name:Aramis Bender Date of :1972 (Home) Address: [address] [place] [address] Payer ID:[id number] (NAIC) Type: ALLIANCE Address: [address] [place] [phone] Care Teams Steward/Stewardess Economy Class Relationship Specialty Start Date End Date Jaelyn Shepherd MD PCP - General Family Practice 05/07/22 [place] [address] [place] [address] Consulting Physician Obstetrics and Gynecology 05/07/22
--- OUTSIDE RECORDS SUMMARY | 2024-07-17 16:15 | XMS_ITS | Clinical Summary ---
Author Organization [facility] Address [address] [facility] [place] [address] Care Team Providers Care Club Manager Name Role Phone Jaelyn Shepherd MD Primary Care Provider Source Comments [facility]eron,non-owned Affiliates and Associated Physician Practices is amultiple site organization consisting of ambulatory clinics and hospital sitesin [place], [place], [place] and [place]. This disclosure is being madepursuant to the Care Everywhere program and may not contain all information available regarding this patient. Last updated 17.[facility] Allergies Active Allergy Reactions Criticality Noted Date Comments Citalopram Unknown 06/18/2022 Medications * Be aware that medications may not be up to date on this document. Alwaysverify current medications with the patient. Medication Sig Dispensed Refills Start Date End Date Status Progesterone 200 MG capsule Take 1 (one) capsule by mouth at bedtime 09/28/2022 Active estradiol (Vivelle-Dot) 0.05 MG/24HR patch Apply 1 (one) patch to skin every 3 days Active testosterone 0.1% CREA compd cream Apply to affected area once daily Active Family History Medical History Relation Name Comments Diabetes - Type 2 Father Diabetes - Type 2 Mother Relation Name Status Comments Father Mother Social History Tobacco Use Types Packs/Day Years Used Date Smoking Tobacco: Never Smokeless Tobacco: Never Alcohol Use Standard Drinks/Week Comments Never 0 (1 standard drink = 0.6 oz pur e alcohol) Sex and Gender Information Value Date Recorded Sex Assigned at Not on file Gender Identity Not on file Sexual Orientation Not on file Last Filed Vital Signs Vital Sign Reading Time Taken Comments Blood Pressure 118/58 01/06/2023 4:02 PM CDT Pulse 64 01/06/2023 4:02 PM CDT Temperature 36.4 C (97.5 F) 01/06/2023 4:02 PM CDT Respiratory Rate - - Oxygen Saturation 99% 01/06/2023 4:02 PM CDT Inhaled Oxygen Concentration - - Weight 55.8 kg (123 lb) 01/06/2023 4:02 PM CDT Height 157.5 cm (5' 2.01 ) 01/06/2023 4:02 PM CD T Body Mass Index 22.49 01/06/2023 4:02 PM CDT Plan of Treatment Health Maintenance Due Date Last Done Comments LIPID TESTING 1980 MAMMOGRAM 1980 PAP SMEAR 1980 HIV SCREENING 11/11/1995 DTAP/TDAP/TD VACCINES (1 - Tdap) 11/11/1999 HEPATITIS B VACCINE (1 of 3 - 19+ 3-dose series) 11/11/1999 COVID-19 VACCINE (2023-2 5 season) 2023 INFLUENZA VACCINE (#1) 2023 DEPRESSION SCREENING 04/12/2024 ZOSTER VACCINE (1 of 2) 2030 HEPATITIS C SCREENING Completed 01/08/2023 HIB VACCINE Aged Out No longer eligi ble based on patient's age to complete this topic HPV VACCINE Aged Out No longer eligi ble based on patient's age to complete this topic MENINGOCOCCAL (Group B) VACC INE SHARED DECISION-MAKING Aged Out No longer eligibl e based on patient's age to complete this topic MENINGOCOCCAL GROUPS A/C/Y/W VACCINE Aged Out No longer eligible b ased on patient's age to complete this topic PNEUMOCOCCAL VACCINE Aged Out No long er eligible based on patient's age to complete this topic Procedures Procedure Name Priority Date/Time Associated Diagnosis Comments HEPATITIS C AB W/RFLX TO HCV RNA QN PCR Routine 01/08/2023 3:34 PM CDT Polyarthralgia Other fatigue Positive MESHA (antinuclear antibody) Myalgia from Last 3 Months or Most Recently Relevant to Health Maintenance Results * HEPATITIS C AB W/RFLX TO HCV RNA QN PCR (01/08/2023 3:34 PM CDT) Hepatitis C Antibody NON-REACTI VE NON-REACT [facility] Comment: HCV antibody was non-reactive. There is no laboratory evidence of HCV infection. In most cases, no further action is required. However, if recent HCV exposure is suspected, a test for HCV RNA (test code 63968) is suggested. For additional information please refer to http://education.Iotum.Nayatek/faq/ENE03j0 (This link is being provided for informational/ educational purposes only.) Test Performed at: [facility] [place] [address] [place] [address] SANGEETHA KAUR MD Blood BLOOD SPECIMEN / Unknown 01/08/2023 3:34 PM CDT 01/08/2023 3:35 PM CDT Suzanne Price MD LAB - CHEMISTR Y ORDERABLES [email or web address] [address] [place] [address] from Last 3 Months or Most Recently Relevant to Health Maintenance Care Teams Club Manager Relationship Specialty Start Date End Date Jaelyn Shepherd MD [address] [place] [address] [place] [id number] PCP - General Family Medicine 11/24/22
--- OUTSIDE RECORDS SUMMARY | 2024-07-17 16:15 | XMS_ITS | Referral Summary ---
Author Organization [facility], [facility] [address] Address [address] [address] Care Team Providers Care Engineering Tech Name Role Phone Jaelyn Shepherd MD Primary Care Provider Jodie Godfrey DO Unavailable [phone] Encounters Date Type Department Care Team Description 07/12/2024 Documentation [facility] [id number] [phone] Inocencia Gramajo 07/10/2024 Orders Only [facility] [address] [phone] Jodie Godfrey DO Menopausal symptoms (Primary Dx) 07/09/2024 Results Follow-Up [facility] [id number] [phone] Jodie Godfrey DO 07/06/2024 9:45 AM CDT Office Visit [facility] [address] [phone] Jodie Godfrey DO Routine gynecological examination (Primary Dx); Menopausal symptoms; Vitamin D deficiency; Muscle cramping 05/23/2024 Orders Only [facility] [address] [phone] Jodie Godfrey DO Abnormal mammogram (Primary Dx) from Last 3 Months Allergies Active Allergy Reactions Criticality Noted Date [...] ) Active Problems No known active problems Social History Tobacco Use Types Packs/Day Years Used Date Smoking Tobacco: Never Passive Smoke Exposure: Never Smokeless Tobacco: Never Tobacco Cessation:Counseling Given: Not Answered Comments No Sex and Gender Information Value Date Recorded Sex Assigned at Not on file 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 Bx [facility] Comment:NONE GIVEN SOURCE: [facility] Comment:None given Pap, specimen adequacy [facility] Comment: Satisfactory for evaluation. Endocervical/transformation zone component present. Age and/or menstrual status not provided HPV interp [facility] Comment: Cytology Results: Negative for intraepithelial lesion or malignancy. COMMENTS [facility] Comment: This Pap test has been evaluated with computer assisted technology. Carton Machine Operator [facility] Comment: SANTO SANTIAGO(ASCP) CT Screening location: [address] [place] [address] [place] [address] Comment [facility] Comment: EXPLANATORY NOTE: The Pap is [...] High Risk E6/E7 Not Detected Not Detected [facility] Comment: Methodology: Bracelet Former-Mediated Amplification This assay detects E6/E7 viral messenger RNA (mRNA) from 14 high-risk HPV types (16,18,31,33,35,39,45,51,52,56,58,59,66,68). Cervical sources are required for HPV testing. If a vaginal source from a patient who has had a total hysterectomy with removal of cervix was submitted, please contact the testing laboratory for alternative testing options. For additional information, please refer to http://Precipio.Ingo Money/faq/SVV838g6 (This link if provided for information/ educational purposes only.) Swab 07/06/2024 10:2 8 AM CDT 07/07/2024 12:38 AM CDT Jodie Godfrey LAB CYTOLOGY ORDERABLES Final Result Performing Organization Address City/[facility]/ZIP Co de Phone Number [facility] [address] [place] [address] [facility] [address] [place] [address] * (ABNORMAL) Vitamin D 25 hydroxy (07/06/2024 10:14 AM CDT) Pathologist [facility] Vitamin D 25-OH 24(L) 30 - 100 ng/mL [facility] Comment: Vitamin D Status 25-OH Vitamin D: Deficiency: <20 ng/mL Insufficiency: 20 - 29 ng/mL Optimal: > or = 30 ng/mL For 25-OH Vitamin D testing on patients on D2-supplementation and patients for whom quantitation of D2 and D3 fractions is required, the QuestAssureD(TM) 25-OH VIT D, (D2,D3), LC/MS/MS is recommended: order code 47140 (patients >2yrs). See Note 1 Note 1 For additional information, please refer to http://Precipio.Spotster.Greytip Software/faq/WAU173 (This link is being provided for informational/ educational purposes only.) Blood 07/06/2024 10:1 4 AM CDT 07/06/2024 10:15 AM CDT Jodie Godfrey DO LAB BLOOD ORDERABLES Fi nal Result Performing Organization Address City/[facility]/ZIP Co de Phone Number [facility] [address] [place] [address] * Estradiol (07/06/2024 10:14 AM CDT) Pathologist [facility] Estradiol 230 pg/mL [facility] Comment: Reference Range Follicular Phase: 19-144 Mid-Cycle: 64-357 Luteal Phase: 56-214 Postmenopausal: < or = 31 Reference range established on post-pubertal patient population. No pre-pubertal reference range established using this assay. For any patients for whom low Estradiol levels are anticipated (e.g. males, pre-pubertal children and hypogonadal/post-menopausal females), the [facility] Estradiol, Ultrasensitive, LCMSMS assay is recommended (order code 33125). Please note: patients being treated with the drug fulvestrant (Faslodex(R)) have demonstrated significant interference in immunoassay methods for estradiol measurement. The cross reactivity could lead to falsely elevated estradiol test results leading to an inappropriate clinical assessment of estrogen status. [facility] order code [id number], Ultrasensitive LC/MS/MS demonstrates negligible cross reactivity with fulvestrant. Blood 07/06/2024 10:1 4 AM CDT 07/06/2024 10:15 AM CDT us Jodie Godfrey DO LAB BLOOD ORDERABLES Fi nal Result [facility] [address] [place] [address] * CBC without differential (07/06/2024 10:14 AM CDT) Pathologist [facility] WBC 4.6 3.8 - 10.8 Thousand/u L [...] CDT 07/06/2024 10:15 AM CDT us Jodie CamposFliptopmatt DO LAB BLOOD ORDERABLES Fi nal Result Performing Organization Address City/[facility]/ZIP Co de Phone Number [facility] [address] [place] [address] * Follicle stimulating hormone (07/06/2024 10:14 AM CDT) FSH 3.5 mIU/mL [facility] Comment: Reference Range Follicular Phase 2.5-10.2 Mid-cycle Peak 3.1-17.7 Luteal Phase 1.5- 9.1 Postmenopausal 23.0-116.3 Blood 07/06/2024 10:1 4 AM CDT 07/06/2024 10:15 AM CDT us Jodie Godfrey DO LAB BLOOD ORDERABLES Fi nal Result Performing Organization Address [facility] Co de Phone Number [facility] [address] [place] [address] * Ferritin (07/06/2024 10:14 AM CDT) Ferritin 115 16 - 232 ng/mL [facility] Blood 07/06/2024 10:1 4 AM CDT 07/06/2024 10:15 AM CDT Jodie Godfrey DO LAB BLOOD ORDERABLES Fi nal Result Performing Organization Address [facility] Co de Phone Number [facility] [address] [place] [address] from Last 3 Months Insurance [employer] Care Teams Engineering Tech Relationship Specialty Start Date End Date Jaelyn Shepherd MD PCP - General Family Practice 05/07/22 [place] [address] [place] [address] Consulting Physician Obstetrics and Gynecology 05/07/22
== END 2024-07-17 14:10 | disposition home or self-care (01) ==
PROVIDERS: PCP Family Medicine; Visit Provider Obstetrics & Gynecology
DX: E28.310 Symptomatic premature menopause (principal)
CPT/HCPCS: 77080